=== PATIENT | female | born 2000 | race Caucasian/White ===

== ENCOUNTER 2019-09-23 09:48 | Emergency (ER) | payer OTHER ==
[2019-09-23 10:19] VITALS: BP 115/61
--- NOTE | 2019-09-23 10:30 | ER Document Report ---
HPI - HPI Time Seen by Provider: 09/23/19 10:26 Notes: Patient is a 19-year-old female no significant past medical history aside from previous UTIs who presents complaining of urinary burning, urgency, frequency over the past couple days. She has been able to eat and drink without difficulty. She is having normal bowel movements. No other vaginal discharge, odor, or bleeding. She is no concern of STD or STI and does not want testing for. Denies drug allergies. Denies any headache, fever, URI, sore throat, chest pain, palpitations, syncope, cough, shortness of breath, wheeze, dyspnea, abdominal pain, nausea/vomiting/diarrhea, back pain, or rash. - ROS Systems Reviewed and Negative: Yes All other systems reviewed and negative Past Medical History - Social History Smoking Status: Current Every Day Smoker Family History: Reviewed & Not Pertinent Vertical Provider Document - CONSTITUTIONAL Agree With Documented VS: Yes Notes: PHYSICAL EXAMINATION: GENERAL: Well-appearing, well-nourished and in no acute distress. LUNGS: Breath sounds clear to auscultation bilaterally and equal. No wheezes rales or rhonchi. HEART: Regular rate and rhythm without murmurs, rubs, gallops. ABDOMEN: Soft, nontender, nondistended abdomen. No guarding, no rebound. Norm al bowel sounds present. No CVA tenderness bilaterally. Musculoskeletal: FROM to passive/active. Strength 5+/5. Extremities: No cyanosis, clubbing, or edema b/l. Peripheral pulses 2+. Capillary refill less than 3 seconds. NEUROLOGICAL: Normal speech, normal gait. PSYCH: Normal mood, normal affect. SKIN: Warm, Dry, normal turgor, no rashes or lesions noted. Course - Re-evaluation Re-evalutation: 09/23/19 10:56 Patient is an afebrile, well-hydrated, 19-year-old female who presents to the ED with an acute UTI. Vitals are acceptable without any significant tachycardia, tachypnea, or hypoxia. PE is otherwise unremarkable. Patient's abdomen is soft and nontender. She has no CVA tenderness bilaterally. See urinalysis results. Urine culture is pending. HCG negative. No other labs or imaging warranted at this time based on H&P. Low suspicion/risk for acute appendicitis, bowel obstruction, acute cholecystitis, acute cholangitis, perforated diverticulitis, incarcerated hernia, pancreatitis, perforated ulcer, peritonitis, sepsis, pelvic inflammatory disease, ectopic , tubo-ovarian abscess, ovarian torsion, or other systemic emergent condition at this time. Patient is aware that her condition can change from initial presentation and she needs to monitor symptoms closely and seek medical attention if any acute changes. I will send her home with a prescription for Keflex. Conservative measures otherwise for symptoms. Recheck with your PCM in 3-5 days. Consider consult with a Urologist. Return to the ED with any worsening/concerning symptoms otherwise as reviewed in discharge. Patient is in agreement. GI intolerance to amoxicillin. Keflex precautions reviewed. - Vital Signs Vital signs: Temp Pulse Resp BP Pulse Ox 98.0 F 78 18 115/61 100 09/23/19 10:16 09/23/19 10:16 09/23/19 10:16 09/23/19 10:16 09/23/19 10:16 Discharge - Discharge Clinical Impression: Acute UTI (urinary tract infection) Condition: Stable Disposition: HOME, SELF-CARE Instructions: Cephalexin ([facility]), Urinary Tract Infection ([facility]) Additional Instructions: Push fluids (i.e. water, cranberry juice) Proper hygenic technique Keep the skin clean Tylenol/ibuprofen as needed May use over the counter AZO for burning with urination Take medications as directed F/u with your PCM in 3-5 days for a recheck Consider consult with a Urologist for ongoing/worsening symptoms. Return to the ED with any worsening symptoms and/or development of fever, headache, chest pain, palpitations, syncope, shortness of breath, trouble breathing, abdominal pain, n/v/d, blood in stool/urine, loss of control of bowel/bladder, urinary retention, or other worsening symptoms that are concerning to you. Prescriptions: Cephalexin Monohydrate [Keflex 500 mg Capsule] 500 mg PO TID #21 capsule Forms: Smoking Cessation Education Referrals: [facility] [Provider Group] - Follow up as needed
[2019-09-23 10:51] LABS: APPEARANCE,URINE SLIGHTLY-CLOUDY; BILIRUBIN,URINE NEGATIVE (NEGATIVE); COLOR,URINE YELLOW; GLUCOSE, URINE NEGATIVE (NEGATIVE); KETONES,URINE NEGATIVE (NEGATIVE); LEUKOCYTE ESTERASE,URINE LARGE (NEGATIVE); NITRITE,URINE NEGATIVE (NEGATIVE); PROTEIN,URINE NEGATIVE (NEGATIVE); URINE SPECIFIC GRAVITY 1.004; UROBILINOGEN,URINE NEGATIVE mg/dL (<2.0)
== END 2019-09-23 11:00 | disposition home or self-care (01) ==
LOC: ER 09:48
DX: N39.0 Urinary tract infection, site not specified (principal); F17.200 Nicotine dependence, unspecified, uncomplicated
CPT/HCPCS: 81001; 81025; 87086; 99283

== ENCOUNTER 2019-09-24 23:47 | Emergency (ER) | payer OTHER ==
[2019-09-24 23:58] VITALS: BP 112/55
--- NOTE | 2019-09-25 00:08 | ER Document Report ---
HPI - HPI Time Seen by Provider: 09/25/19 00:06 Pain Level: Denies Notes: Otherwise healthy 19-year-old female presenting to the emergency department requesting medication change. Patient reports she was diagnosed with a UTI 2 days ago and placed on Keflex. She states that she has a penicillin allergy and forgot to tell them. She is requesting that her medication be changed at this time. - REPRODUCTIVE LMP: 28 nov Reproductive: DENIES: : Past Medical History - General Information source: Patient - Social History Smoking Status: Current Every Day Smoker Frequency of alcohol use: None Drug Abuse: None Family History: Reviewed & Not Pertinent Patient has suicidal ideation: No Patient has homicidal ideation: No - Medical History Medical History: Negative Surgical Hx: Negative Vertical Provider Document - CONSTITUTIONAL Notes: PHYSICAL EXAMINATION: GENERAL: Well-appearing, well-nourished and in no acute distress. HEAD: Atraumatic, normocephalic. EYES: Pupils equal round extraocular movements intact, conjunctiva are normal. ENT: Nares patent NECK: Normal range of motion LUNGS: No respiratory distress Musculoskeletal: Normal range of motion NEUROLOGICAL: Normal speech, normal gait. PSYCH: Normal mood, normal affect. SKIN: Warm, Dry, normal turgor, no rashes or lesions noted. - INFECTION CONTROL TRAVEL OUTSIDE OF THE [place] IN LAST 30 DAYS: No Course - Re-evaluation Re-evalutation: Prescription changed per her request. Patient has no acute complaints today. Patient discharged home in stable condition. - Vital Signs Vital signs: Temp Pulse Resp BP Pulse Ox 97.5 F 70 18 112/55 L 96 09/24/19 23:58 09/24/19 23:58 09/24/19 23:58 09/24/19 23:58 09/24/19 23:58 Discharge - Discharge Clinical Impression: UTI (urinary tract infection) Qualifiers: Urinary tract infection type: site unspecified Hematuria presence: without hematuria Qualified Code(s): N39.0 - Urinary tract infection, site not specified Medication reaction Qualifiers: Encounter type: initial encounter Qualified Code(s): T50.905A - Adverse effect of unspecified drugs, medicaments and biological substances, initial encounter Condition: Stable Disposition: HOME, SELF-CARE Additional Instructions: Your antibiotic was changed to Bactrim. Please take 1 tablet twice daily for the next 5 days. We will call you if there is any abnormality on the urine culture. Please return to the emergency department with any new or worsening symptoms such as increased pain, fever greater than 101, persistent vomiting or any other symptoms. I have also written you a prescription for some nausea medication in case you need it. Prescriptions: Sulfamethoxazole/Trimethoprim [Bactrim Ds Tablet] 1 tab PO BID #10 tablet Promethazine HCl [Phenergan 25 mg Tablet] 1 - 2 tab PO Q6H PRN #15 tablet PRN Reason:
== END 2019-09-25 00:38 | disposition home or self-care (01) ==
LOC: ER 23:47
DX: T50.905A Adverse effect of unspecified drugs, medicaments and biological substances, initial encounter (principal); N39.0 Urinary tract infection, site not specified; F17.200 Nicotine dependence, unspecified, uncomplicated
CPT/HCPCS: 99283